=== PATIENT | female | born 1945 | race Caucasian/White ===

== ENCOUNTER 2023-10-22 18:40 | Emergency (ER) | payer MEDICARE, SELFPAY ==
[2023-10-22 18:49] VITALS: BP 140/91; PULSE 88; RESP 18; TEMP 36.5; O2SAT 97
--- NOTE | 2023-10-22 19:09 | ED.URI ---
HPI - URI/Sore Throat General Chief Complaint: Upper Respiratory Infection Stated Complaint: poss sinus infection Time Seen by Provider: 10/22/23 19:10 Source: patient and RN notes reviewed Mode of arrival: ambulatory Limitations: no limitations History of Present Illness HPI Narrative: 78-year-old female presents with concern for 3 day history of cough, nasal congestion, stuffy nose. She reports the cough has been getting worse. Reports she is taking [id number] medications such as Robitussin without relief. She had a negative COVID test today MD elicited complaint: cough and nasal congestion Related Data Home Medications Medication Instructions Recorded Confirmed atorvastatin 20 mg tablet mg 10/22/23 levothyroxine 75 mcg tablet mcg 10/22/23 omeprazole 20 mg capsule,delayed mg 10/22/23 release Allergies Allergy/AdvReac Type Severity Reaction Status Date / Time morphine Allergy Unknown Verified 10/22/23 18:53 NKA Allergy Unknown Unknown Uncoded 10/22/23 18:53 NONE Allergy Unknown Unknown Uncoded 10/22/23 18:53 NO KNOWN DRUG ALLERGIES Allergy Y Uncoded 05/10/03 14:05 (Class Allergy) Review of Systems Review of Systems: CONSTITUTIONAL: Denies malaise, chills, sweats, or fever. EYES: Denies visual changes, redness, or discharge. ENT: Reports rhinorrhea, congestion, sinus pain CARDIOVASCULAR: Denies chest pain, palpitations, or edema. RESPIRATORY: Reports cough, chest congestion. Denies dyspnea. GASTROINTESTINAL: Denies abdominal pain, nausea, vomiting, diarrhea SKIN: Denies rash or itching. MUSCULOSKELETAL: Denies myalgia. NEUROLOGIC: Denies headache. All systems reviewed & are unremarkable except as noted in HPI and below PMFSH Comments At time of signature, agree with nursing past medical, surgical, social and family history. There is no relevant family history pertinent to the presenting complaint Exam Narrative: GENERAL: Well-appearing, well-nourished, and in no acute distress. HEAD: Normocephalic EYES: PERRLA, conjunctivae clear ENT: Nares clear, turbinates edematous and erythematous, clear discharge. Mucous membranes moist. TM pearly baldwin with dull light reflex bilaterally; no tragal tenderness. Oropharynx not erythematous without lesions. Tonsils not enlarged and without exudate, no drooling, no hoarseness, no trismus, uvula midline. NECK: Supple. No lymphadenopathy CHEST: Clear to auscultation, breath diminished in the right lower lobe. No wheezing, rhonchi, rales, or stridor. No respiratory distress, speaks in full sentences. HEART: Regular rate and rhythm. No murmur heard. SKIN: Warm, dry, no rash. NEURO: Alert and oriented x3. PSYCH: Normal mood and affect Course Course Emergency Course: Patient is aware of diagnosis, understands and agrees to treatment plan. Anticipatory guidance given. Patient agrees to follow-up as directed and is aware of reasons to seek care at the emergency department. Portions of this record may have been created with voice recognition software Level of Care: Express Care Visit Vital Signs Vital signs: Vital Signs Temperature 97.7 F 10/22/23 18:49 Pulse Rate 88 10/22/23 18:49 Respiratory Rate 18 10/22/23 18:49 Blood Pressure 140/91 H 10/22/23 18:49 Pulse Oximetry 97 10/22/23 18:49 Oxygen Delivery Room Air 10/22/23 18:49 Temperature 97.7 F 10/22/23 18:49 Pulse Rate 88 10/22/23 18:49 Respiratory Rate 18 10/22/23 18:49 Blood Pressure 140/91 H 10/22/23 18:49 Pulse Oximetry 97 10/22/23 18:49 Oxygen Delivery Room Air 10/22/23 18:49 Reviewed. MDM - URI/Sore Throat MDM Narrative Medical decision making narrative: Differential diagnosis considered: Zambrano virus, strep pharyngitis, allergic rhinitis, upper respiratory tract infection, sinusitis, rhinosinusitis, nasopharyngitis. viral pharyngitis, otitis media, otitis externa, pneumonia, bronchitis, viral cough syndrome, viral syndrome, and influenza.
== END 2023-10-22 19:23 | disposition home or self-care (01) ==
PROVIDERS: Emergency Provider Nurse Practitioner
DX: J40 Bronchitis, not specified as acute or chronic (principal); E78.00 Pure hypercholesterolemia, unspecified; E03.9 Hypothyroidism, unspecified
CPT/HCPCS: 99213; G0463